=== PATIENT | female | born 1985 | race African-American/Black ===

== ENCOUNTER 2016-07-26 10:24 | Emergency (ER) | payer OTHER ==
[~2016-07-26 10:24] MED LIST: ATORVASTATIN CA10 M1 PO; DAILY VITE1 EACH PO; GAS-X125 MG PO; INDERAL LA60 M1 PO; LORAZEPAM1 M1 PO; LORAZEPAM2 M1 PO; POLYETHYLENE G255 GM PO; PROPRANOLOL HCL10 M1 PO; RISPERIDONE1 M1 PO; RISPERIDONE3 M1 PO; SEASONIQUE 0.11 EACH PO; TOPIRAMATE25 M2 PO; TRAZODONE HCL100 M1 PO
[2016-07-26 10:41] VITALS: BP 138/86
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
== END 2016-07-26 11:22 ==
LOC: ERH 10:24
DX: R46.89 Other symptoms and signs involving appearance and behavior (principal)